=== PATIENT | male | born 1970 | race Caucasian/White ===

== ENCOUNTER 2020-02-06 07:22 | Emergency (ER) | payer OTHER, SELFPAY ==
[~2020-02-06] VITALS: Ht 172.7 cm; Wt 104.3 kg
[2020-02-06 07:28] VITALS: Ht 172.7 cm; Wt 104.3 kg
[2020-02-06 08:17] VITALS: BP 104/74
== END 2020-02-06 08:17 | disposition home or self-care (01) ==
LOC: ED 07:22
DX: U07.1 COVID-19 (principal); I10 Essential (primary) hypertension; E78.00 Pure hypercholesterolemia, unspecified; Z88.0 Allergy status to penicillin
CPT/HCPCS: 87804; U0003

== ENCOUNTER 2020-02-09 09:56 | Emergency (ER) | payer OTHER, SELFPAY ==
[~2020-02-09] VITALS: Ht 172.7 cm; Wt 104.3 kg
[2020-02-09 09:58] VITALS: BP 124/81; Ht 172.7 cm; Wt 104.3 kg
== END 2020-02-09 13:51 | disposition home or self-care (01) ==
LOC: ED 09:56
DX: U07.1 COVID-19 (principal); J12.89 Other viral pneumonia; I10 Essential (primary) hypertension; E78.00 Pure hypercholesterolemia, unspecified; E66.8 Other obesity; Z68.34 Body mass index [BMI] 34.0-34.9, adult; Z88.0 Allergy status to penicillin